=== PATIENT | female | born 1965 | race Hispanic/Latino ===

== ENCOUNTER 2022-06-03 22:15 | Emergency (ER) | payer SELFPAY ==
[~2022-06-03] VITALS: Ht 149.9 cm; Wt 79.4 kg
[2022-06-03] MEDS ORDERED: CEPHALEXIN500 MG PO (23:32)
[2022-06-03] MEDS ORDERED: AMOXICILLIN/CLAVULANATE K 875 MG TAB ONE (23:41)
== END 2022-06-03 23:50 | disposition home or self-care (01) ==
LOC: FSED 22:18
DX: S61.031A Puncture wound without foreign body of right thumb without damage to nail, initial encounter (principal); S60.321A Blister (nonthermal) of right thumb, initial encounter; L08.9 Local infection of the skin and subcutaneous tissue, unspecified; I10 Essential (primary) hypertension
CPT/HCPCS: 99282